=== PATIENT | female | born 1975 | race Caucasian/White ===

== ENCOUNTER 2022-01-05 11:51 | Emergency (ER) | payer BC ==
[2022-01-05] MEDS: Sodium Chloride 0.9% 1,000 ML IV ONE (12:00)
[2022-01-05 12:29] LABS: ANION GAP 15.4 mmol/L (5-15); CHLORIDE,CL 102 mmol/L (98-107); SODIUM,NA 141 mmol/L (136-145)
[2022-01-05 13:25] VITALS: BP 130/83; PULSE 71
== END 2022-01-05 13:40 | disposition home or self-care (01) ==
LOC: KA.ED 11:51
DX: R55 Syncope and collapse (principal); E87.6 Hypokalemia; H83.09 Labyrinthitis, unspecified ear; J06.9 Acute upper respiratory infection, unspecified; F17.210 Nicotine dependence, cigarettes, uncomplicated; Z79.899 Other long term (current) drug therapy; Z88.1 Allergy status to other antibiotic agents; Z88.6 Allergy status to analgesic agent; Z20.822 Contact with and (suspected) exposure to COVID-19
CPT/HCPCS: 36415; 71046; 80053; 81001; 81025; 84484; 85025; 93005; 93010; 96360; 99284; 99285-25; J7030; U0002

== ENCOUNTER 2024-11-15 05:50 | Emergency (ER) | payer BC ==
[2024-11-15] MEDS: Sodium Chloride 0.9% 1,000 ML IV ONE (06:23)
[2024-11-15 06:42] LABS: BASOPHILS ABSOLUTE AUTO 0.03 10^3/uL (0.00-0.10); BASOPHILS PERCENT AUTO 0.4 % (0.0-1.0); EOSINOPHILS ABSOLUTE AUTO 0.14 10^3/uL (0.10-0.30); EOSINOPHILS PERCENT AUTO 1.9 % (1.0-3.0); HEMATOCRIT 41.6 % (37.0-47.0); HEMOGLOBIN 14.3 g/dL (12.0-16.0); IMMATURE GRAN ABSOLUTE AUTO 0.01 10^3/uL (0.00-0.04); IMMATURE GRAN PERCENT AUTO 0.1 % (0.0-0.4); LYMPHOCYTES ABSOLUTE AUTO 0.96 10^3/uL (1.00-4.00); LYMPHOCYTES PERCENT AUTO 12.8 % (20.0-40.0); MEAN CORPUSCULAR HEMOGLOBIN 32.8 pg (27.0-31.0); MEAN CORPUSCULAR HGB CONC 34.4 g/dL (32.0-36.0); MEAN CORPUSCULAR VOLUME 95.4 fL (82.0-92.0); MEAN PLATELET VOLUME 10.4 fL (7.4-10.4); MONOCYTES ABSOLUTE AUTO 1.11 10^3/uL (0.10-0.80); MONOCYTES PERCENT AUTO 14.8 % (2.0-8.0); NEUTROPHILS ABSOLUTE AUTO 5.26 10^3/uL (2.50-7.00); PLATELET COUNT,PLT 272 10^3/uL (150-400); RED BLOOD CELL COUNT 4.36 10^6/uL (3.80-5.50); RED CELL DISTRIBUTION WIDTH 12.1 % (11.5-14.5); WHITE BLOOD CELL COUNT,WBC 7.51 10^3/uL (5.00-10.00)
[2024-11-15 06:59] LABS: ALBUMIN 3.7 g/dL (3.40-5.00); ANION GAP 13.6 mmol/L (5-15); BILIRUBIN TOTAL 0.4 mg/dL (0.2-1.0); C-REACTIVE PROTEIN 1.42 mg/dL (0.00-0.50); CALCIUM 9.1 mg/dL (8.7-10.3); CARBON DIOXIDE,CO2 26.3 mmol/L (21.0-32.0); CREATININE 0.68 mg/dL (0.51-1.17); EST CRCL DRUG DOSING (CG) 88.31 mL/min; POTASSIUM,K 3.9 mmol/L (3.5-5.1); PROTEIN TOTAL,TP 7.2 g/dL (6.4-8.2)
[2024-11-15 07:42] LABS: APPEARANCE,URINE SLIGHTLY CLOUDY (CLEAR); BILIRUBIN,URINE NEGATIVE (NEGATIVE); COLOR,URINE LIGHT YELLOW (YELLOW); GLUCOSE,URINE NEGATIVE (NEGATIVE); KETONES,URINE NEGATIVE (NEGATIVE); LEUKOCYTE ESTERASE,URINE NEGATIVE (NEGATIVE); NITRITE,URINE NEGATIVE (NEGATIVE); OCCULT BLOOD,URINE TRACE-INTACT (NEGATIVE); PROTEIN,URINE NEGATIVE (NEGATIVE); UROBILINOGEN,URINE 0.2 E.U./dL (0.2-1.0)
[2024-11-15 07:52] LABS: BACTERIA,URINE NOT SEEN /HPF (NONE TO FEW); EPITHELIAL CELLS,URINE FEW /LPF; RBC,URINE 0-5 /HPF (0-5); WBC,URINE NOT SEEN /HPF (0-5)
[2024-11-15] MEDS: Sodium Chloride 0.9% 50 ML IV SCH (07:55)
[2024-11-15] MEDS: Iopamidol 755 Mg/ML 100 ML Bottle IV ONE (07:55)
[2024-11-15 08:37] VITALS: BP 114/78
[2024-11-15] MEDS: Ondansetron 4 MG/2 ML SDV IVPUSH ONE (08:37)
[2024-11-15 09:11] VITALS: PULSE 78
== END 2024-11-15 09:09 | disposition home or self-care (01) ==
LOC: KA.ED 05:50
DX: R10.31 Right lower quadrant pain (principal); Z88.6 Allergy status to analgesic agent; Z88.5 Allergy status to narcotic agent; Z88.1 Allergy status to other antibiotic agents; Z88.8 Allergy status to other drugs, medicaments and biological substances; Z79.899 Other long term (current) drug therapy
CPT/HCPCS: 36415; 71046; 74177; 80053; 81001; 82150; 83690; 84484; 85025; 86140; 96360; 99284-25; J3490; J7030; Q9967